=== PATIENT | female | born 1975 | race Caucasian/White ===

== ENCOUNTER 2020-11-06 18:16 | Emergency (ER) | payer OTHER ==
[2020-11-06] MEDS ORDERED: LIDOCAINE 1%-EPI 1:100,000 20 ML VIAL SQ STA (18:43)
[2020-11-06] MEDS ORDERED: DIPH,PERTUS(ACELL)TETVAC-LF 0.5 ML VIAL IM ONE (18:43)
[2020-11-06] MEDS ORDERED: HYDROmorphone 1 MG/ML 1 ML SYRINGE IM STA (18:53)
--- NOTE | 2020-11-06 19:42 | ED ---
Wound/Laceration HPI - General Chief Complaint: Wound/Laceration Stated Complaint: lac through hand Source: patient Mode of arrival: wheelchair Limitations: no limitations - History of Present Illness Initial Comments: Devi is a previously healthy 45-year-old female who presents the emergency department today via private vehicle for evaluation of a laceration to her right hand. Patient reports she was using nonsteroidal kitchen knife to cut apart 2 frozen burger patties when she slipped stabbing into her hand. She immediately noted blood spraying out of her hand. He came to the emergency department. Patient is not on any anticoagulant or antiplatelet medications. - Related Data Allergies Allergy/AdvReac Type Severity Reaction Status Date / Time No Known Allergies Allergy Verified 11/06/20 18:23 Review of Systems ROS Statement: Those systems with pertinent positive or pertinent negative responses have been documented in the HPI. ROS Other: All systems not noted in ROS Statement are negative. Past Medical History Past Medical History: Asthma History of Any Multi-Drug Resistant Organisms: None Reported Past Surgical History: No Surgical Hx Reported Past Psychological History: Anxiety Smoking Status: Current every day smoker Past Alcohol Use History: Rare Past Drug Use History: None Reported General Exam - General Exam Comments Initial Comments: Physical Exam GENERAL: Patient is well-developed and well-nourished. Patient is nontoxic and well-hydrated and is in no distress. HENT: Normocephalic, Atraumatic. EYES: PERRL, EOMI No conjunctival pallor PULMONARY: Tachypneic and crying CARDIOVASCULAR: Tachycardic ABDOMEN: Non-distended SKIN: Approximately 1-1/2 cm laceration between the base of the first and second fingers on the palmar surface of the right hand, arterial bleeding from the laceration as noted : Deferred NEUROLOGIC: Alert and oriented Normal speech Normal gait MUSCULOSKELETAL: Moving all extremities with no apparent injury PSYCHIATRIC: No SI/HI Limitations: no limitations Course Vital Signs 11/06/20 11/06/20 18:20 18:38 Temperature 98.2 F Pulse Rate 166 H 122 H Respiratory 20 16 Rate Blood Pressure 119/83 117/79 O2 Sat by Pulse 98 97 Oximetry Medical Decision Making - Medical Decision Making The patient was seen and evaluated immediately upon arrival to the emergency department, patient was noted to have a arterial injury to the palmar surface of the right hand Bleeding was controlled with direct pressure Pressure dressing was applied while supplies were collected to repair the laceration Patient's heart rate improved while resting in the trauma bay, she has no signs of significant blood loss, there is no hypotension or tachycardia after she has calmed down does not appear pale Upon removal of the pressure dressing there is no active bleeding but with any movement of the hand patient again had pulsatile bleeding controlled with direct pressure Patient care was discussed with surgeon principal automation engineer who recommended discussion of patient care with the trauma team Patient care was discussed with Dr. Mcnair at [facility] who is concerned no artery may need ligation and recommended transfer for evaluation by the trauma team or orthopedic surgery The patient is agreeable to transfer Disposition Clinical Impression: Laceration, Arterial hemorrhage Disposition: OTHER INSTITUTION NOT DEFINED Is patient prescribed a controlled substance at d/c from ED?: No Referrals: Amanda Beth MD [Primary Care Provider] - 1-2 days - Out of Hospital Transfer - Req. Specs Out of Hospital Transfer - Requested Specifics: Other Emergency Center ([place])
[2020-11-06 20:27] VITALS: BP 105/72; PULSE 118; RESP 18; TEMP 98.3
== END 2020-11-06 20:15 | disposition other institution (70) ==
LOC: EC 18:16
DX: S61.411A Laceration without foreign body of right hand, initial encounter (principal); J45.909 Unspecified asthma, uncomplicated; F17.200 Nicotine dependence, unspecified, uncomplicated; W26.0XXA Contact with knife, initial encounter
CPT/HCPCS: 90715; 99282; 90471; 96372; J1170